=== PATIENT | male | born 1980 | race Caucasian/White ===

== ENCOUNTER 2020-03-09 07:31 | Emergency (ER) | payer MEDICAID ==
--- NOTE | 2020-03-09 08:03 | EDM.PDOC ---
ED HPI GENERAL MEDICAL PROBLEM - General Chief Complaint: Behavioral/Psych Stated Complaint: SHAKING Time Seen by Provider: 03/09/20 07:58 Source of Information: Reports: Patient History Limitations: Reports: No Limitations - History of Present Illness INITIAL COMMENTS - FREE TEXT/NARRATIVE: 39-year-old male who reports he woke at 2 AM feeling restless and had to get up and pace and began to feel very shaky and the symptoms got worse over time. Beginning approximately 5-6 AM he had nausea with vomiting 2. He also checked his blood pressure and noted that it was elevated. He was just recently admitted at the behavioral health unit at [facility] secondary to suicide attempt with suicidal ideation and alcohol/substance abuse and he was discharged on Thursday of last week. He reports that approximately one hour after getting home he began drinking alcohol again and he has been drinking heavily since that time. He does report that his last drink was 5-6 PM last night. He has used methamphetamine and marijuana in the past but he denies any methamphetamine abuse for the past 2-3 weeks. He currently denies any suicidal ideation and reports he has had no suicidal ideation since he has been discharged. He denies doing anything to harm himself. He does report that he has taken his blood pressure intermittently since he has been home from the hospital and it has been elevated and has been taking his amlodipine 10 mg " when he feels he needs them". He reports that he has taken 2 or 3 at a time and sometimes he has taken it more than 1 time a day. He has a chronic cough and chronic nasal congestion which has not changed. Eyes any fever. He does report headache, leg aches and some stomach ache that he rates as a 5/10. He reports that he has been drinking water but he has not been eating much over the past few days. He denies any auditory or visual hallucinations. He does have a history of alcohol withdrawal and he has had 3-4 alcohol withdrawal seizures in the past. He presents via ambulance. He came from his mother's home as he is currently staying with her now. There are no other associated signs or symptoms. There are no other modifying factors. Onset: Today (2 AM) Duration: Getting Worse Location: Reports: Head, Abdomen, Lower Extremity, Left, Lower Extremity, Right Quality: Reports: Ache Severity: Moderate Improves with: Reports: None Worsens with: Reports: None Context: Reports: Other (As above) Associated Symptoms: Reports: Headaches, Loss of Appetite, Nausea/Vomiting, Other (Shaky and other symptoms as above) Treatments [employer]: Reports: Other (see below) (Nothing) Bilateral legs Pain Score (Numeric/FACES): 5 - Related Data Allergies Allergy/AdvReac Type Severity Reaction Status Date / Time mirtazapine [From Remeron] Allergy Rash Verified 03/09/20 07:36 Home Meds: Home Meds Multivitamin [Multivitamins] 1 each PO DAILY 09/03/18 [History] amLODIPine Besylate [Norvasc] 5 mg PO DAILY 03/09/20 [History] Past Medical History Cardiovascular History: Reports: High Cholesterol, Hypertension Gastrointestinal History: Reports: GERD, Other (See Below) Other Gastrointestinal History: elevated liver function due to ETOH abuse Genitourinary History: Reports: Renal Disease Neurological History: Reports: Concussion, Seizure Other Neuro History: seizure from ETOH withdrawl Psychiatric History: Reports: Addiction, Anxiety, Depression, Panic Attack, Psych Hospitalization(s), Suicide Attempt, Suicidal Ideation, Other (See Below) Other Psychiatric History: mood disorder Endocrine/Metabolic History: Reports: Obesity/BMI 30+ Dermatologic History: Reports: Eczema Other Dermatologic History: exzema - Infectious Disease History Infectious Disease History: Reports: Chicken Pox - Past Surgical History GI Surgical History: Reports: Hernia, Inguinal (Bilateral inguinal hernia repair as an .) Social & Family History - Tobacco Use Tobacco Use Within Last Twelve Months: Smokeless Tobacco Years of Tobacco use: 18 - Caffeine Use Caffeine Use: Reports: Soda - Alcohol Use Days Per Week of Alcohol Use: 7 Number of Drinks Per Day: 4 Total Drinks Per Week: 28 Alcohol Use Frequency: Binges (Heavy alcohol use) - Recreational Drug Use Recreational Drug Use: Yes Recreational Drug Type: Reports: Marijuana/Hashish, Methamphetamine Recreational Drug Use Frequency: Weekly - Living Situation & Occupation Occupation: Unemployed Social History Comment: Currently staying with his mother in this area. He lives in [place]. ED ROS GENERAL - Review of Systems Review Of Systems: See Below Constitutional: Reports: Malaise HEENT: Reports: Other (Dry mouth) Respiratory: Reports: No Symptoms Cardiovascular: Reports: No Symptoms Endocrine: Reports: No Symptoms GI/Abdominal: Reports: Abdominal Pain, Nausea : Reports: No Symptoms Musculoskeletal: Reports: Leg Pain (Bilateral leg aching) Skin: Reports: No Symptoms Neurological: Reports: Headache, Tremors, Other (Feels very shaky) Psychiatric: Reports: Anxiety. Denies: Homicidal Ideation, Suicidal Ideation Hematologic/Lymphatic: Reports: No Symptoms Immunologic: Reports: No Symptoms ED EXAM, GENERAL - Physical Exam Exam: See Below Exam Limited By: No Limitations General Appearance: Alert, WD/WN, Anxious, Moderate Distress, Other (Very tremulous.) Eye Exam: Bilateral Eye: EOMI, Normal Inspection (Sclera are anicteric), PERRL Ears: Normal External Exam, Hearing Grossly Normal Ear Exam: Bilateral Ear: Auricle Normal Nose: Normal Inspection, Normal Mucosa, No Blood Throat/Mouth: Normal Voice, No Airway Compromise, Other (Somewhat dry mucous membranes) Head: Atraumatic, Normocephalic Neck: Normal Inspection, Supple, Non-Tender, Full Range of Motion Respiratory/Chest: No Respiratory Distress, Lungs Clear, Normal Breath Sounds, No Accessory Muscle Use, Chest Non-Tender Cardiovascular: Normal Peripheral Pulses, No JVD, No Murmur, Tachycardia Peripheral Pulses: 2+: Radial (L), Radial (R), Dorsalis Pedis (L), Dorsalis Pedis (R) GI/Abdominal: Normal Bowel Sounds, Soft, Non-Tender Back Exam: Normal Inspection, Full Range of Motion Extremities: Normal Inspection, Normal Range of Motion, Non-Tender, No Pedal Edema, Normal Capillary Refill Neurological: Alert, Oriented, CN II-XII Intact, Normal Cognition, No Motor/ Sensory Deficits Psychiatric: Anxious Skin Exam: Warm, Dry, Intact, Normal Color, No Rash EKG INTERPRETATION EKG Date: 03/09/20 Time: 08:11 Rhythm: Other (Sinus tachycardia) Rate (Beats/Min): 117 [place]: Normal P-Wave: Enlarged QRS: Other (LDH) ST-T: Normal QT: Prolonged (Slightly prolonged QTc.) Comparison: NA - No Prior EKG Course - Vital Signs Last Recorded V/S: Last Vital Signs Temp 36.5 C 03/09/20 10:00 Pulse 94 03/09/20 11:30 Resp 16 03/09/20 11:30 BP 126/84 03/09/20 11:30 Pulse Ox 97 03/09/20 11:30 - Orders/Labs/Meds Orders: Active Orders 24 hr Category Date Time Status EKG Documentation Completion [RC] ASDIRECTED Care 03/09/20 08:20 Active Sodium Chloride 0.9% [Normal Saline] 1,000 ml Med 03/09/20 08:30 Active IV ASDIRECTED Sodium Chloride 0.9% [Saline Flush] Med 03/09/20 08:18 Active 10 ml FLUSH ASDIRECTED PRN Peripheral IV Insertion Adult [OM.PC] Routine Oth 03/09/20 08:18 Ordered EKG 12 Lead [EK] Routine Ther 03/09/20 08:18 Ordered Medication Orders Sodium Chloride (Normal Saline) 1,000 mls @ 125 mls/hr IV ASDIRECTED EULA Last Admin: 03/09/20 08:58 Dose: 125 mls/hr Sodium Chloride (Saline Flush) 10 ml FLUSH ASDIRECTED PRN PRN Reason: Keep Vein Open Last Admin: 03/09/20 08:26 Dose: 10 ml Labs: Laboratory Tests 03/09/20 03/09/20 03/09/20 Range/Units 07:45 07:45 07:45 WBC 9.8 (4.5-12.0) X10-3/uL RBC 4.62 (4.30-5.75) x10(6)uL Hgb 14.3 (13.5-17.8) g/dL Hct 42.3 (30.0-51.3) % MCV 91.7 (80-96) fL MCH 30.9 (27.7-33.6) pg MCHC 33.7 (32.2-35.4) g/dL RDW 15.0 (11.5-15.5) % Plt Count 164 (125-369) X10(3)uL MPV 9.6 (7.4-10.4) fL Neut % (Auto) 75.7 (46-82) % Lymph % (Auto) 16.6 (13-37) % [place] % (Auto) 6.5 (4-12) % Eos % (Auto) 1 (1.0-5.0) % Baso % (Auto) 1 (0-2) % Neut # (Auto) 7.4 (1.6-8.3) # Lymph # (Auto) 1.6 (0.6-5.0) # [place] # (Auto) 0.6 (0.0-1.3) # Eos # (Auto) 0.1 (0.0-0.8) # Baso # (Auto) 0.1 (0.0-0.2) # Sodium 137 (135-145) mmol/L Potassium 3.6 (3.5-5.3) mmol/L Chloride 97 L D (100-110) mmol/L Carbon Dioxide 20 L (21-32) mmol/L BUN 14 (7-18) mg/dL Creatinine 1.2 (0.70-1.30) mg/dL Est Cr Clr Drug Dosing 80.75 mL/min Estimated GFR (MDRD) > 60 (>60) BUN/Creatinine Ratio 11.7 (9-20) Glucose 121 H (80-116) mg/dL Calcium 10.4 H (8.6-10.2) mg/dL Magnesium 1.6 L (1.8-2.5) mg/dL Total Bilirubin 0.8 (0.1-1.3) mg/dL AST 317 H* D (5-25) IU/L ALT 440 H* D (12-36) U/L Alkaline Phosphatase 98 (56-112) IU/L Total Protein 9.6 H (6.0-8.0) g/dL Albumin 5.2 (3.5-5.2) g/dL Globulin 4.4 g/dL Albumin/Globulin Ratio 1.2 Urine Color (YELLOW) Urine Appearance (CLEAR) Urine pH (5.0-6.5) Ur Specific [place] (1.010-1.025) Urine Protein (NEGATIVE) mg/dL Urine Glucose (UA) (NORMAL) mg/dL Urine Ketones (NEGATIVE) mg/dL Urine Occult Blood (NEGATIVE) Urine Nitrite (NEGATIVE) Urine Bilirubin (NEGATIVE) Urine Urobilinogen (NEGATIVE) mg/dL Ur Leukocyte Esterase (NEGATIVE) Urine RBC (0-5) Urine WBC (0-5) Ur Squamous Epith Cells (NS,R,O) Urine Bacteria (NS) Urine Opiates Screen (NEGATIVE) Ur Oxycodone Screen (NEGATIVE) Ur Propoxyphene Screen (NEGATIVE) Ur Barbituates Screen (NEGATIVE) Ur Tricyclics Screen (NEGATIVE) Ur Phencyclidine Scrn (NEGATIVE) Ur Amphetamine Screen (NEGATIVE) Urine MDMA Screen (NEGATIVE) U Benzodiazepines Scrn (NEGATIVE) U Cocaine Metab Screen (NEGATIVE) U Marijuana (THC) Screen (NEGATIVE) Ethyl Alcohol 0.06 H (<0.03) % 03/09/20 03/09/20 Range/Units 09:03 09:03 WBC (4.5-12.0) X10-3/uL RBC (4.30-5.75) x10(6)uL Hgb (13.5-17.8) g/dL Hct (30.0-51.3) % MCV (80-96) fL MCH (27.7-33.6) pg MCHC (32.2-35.4) g/dL RDW (11.5-15.5) % Plt Count (125-369) X10(3)uL MPV (7.4-10.4) fL Neut % (Auto) (46-82) % Lymph % (Auto) (13-37) % [place] % (Auto) (4-12) % Eos % (Auto) (1.0-5.0) % Baso % (Auto) (0-2) % Neut # (Auto) (1.6-8.3) # Lymph # (Auto) (0.6-5.0) # [place] # (Auto) (0.0-1.3) # Eos # (Auto) (0.0-0.8) # Baso # (Auto) (0.0-0.2) # Sodium (135-145) mmol/L Potassium (3.5-5.3) mmol/L Chloride (100-110) mmol/L Carbon Dioxide (21-32) mmol/L BUN (7-18) mg/dL Creatinine (0.70-1.30) mg/dL Est Cr Clr Drug Dosing mL/min Estimated GFR (MDRD) (>60) BUN/Creatinine Ratio (9-20) Glucose (80-116) mg/dL Calcium (8.6-10.2) mg/dL Magnesium (1.8-2.5) mg/dL Total Bilirubin (0.1-1.3) mg/dL AST (5-25) IU/L ALT (12-36) U/L Alkaline Phosphatase (56-112) IU/L Total Protein (6.0-8.0) g/dL Albumin (3.5-5.2) g/dL Globulin g/dL Albumin/Globulin Ratio Urine Color Yellow (YELLOW) Urine Appearance Clear (CLEAR) Urine pH 5.0 (5.0-6.5) Ur Specific [place] 1.010 (1.010-1.025) Urine Protein Trace (NEGATIVE) mg/dL Urine Glucose (UA) Normal (NORMAL) mg/dL Urine Ketones 15 H (NEGATIVE) mg/dL Urine Occult Blood Negative (NEGATIVE) Urine Nitrite Negative (NEGATIVE) Urine Bilirubin Negative (NEGATIVE) Urine Urobilinogen Normal (NEGATIVE) mg/dL Ur Leukocyte Esterase Negative (NEGATIVE) Urine RBC Not seen (0-5) Urine WBC 0-5 (0-5) Ur Squamous Epith Cells Rare (NS,R,O) Urine Bacteria Rare H (NS) Urine Opiates Screen Negative (NEGATIVE) Ur Oxycodone Screen Negative (NEGATIVE) Ur Propoxyphene Screen Negative (NEGATIVE) Ur Barbituates Screen Positive H (NEGATIVE) Ur Tricyclics Screen Negative (NEGATIVE) Ur Phencyclidine Scrn Negative (NEGATIVE) Ur Amphetamine Screen Negative (NEGATIVE) Urine MDMA Screen Negative (NEGATIVE) U Benzodiazepines Scrn Negative (NEGATIVE) U Cocaine Metab Screen Negative (NEGATIVE) U Marijuana (THC) Screen Negative (NEGATIVE) Ethyl Alcohol (<0.03) % Meds: Medications Generic Name Dose Route Start Last Admin Trade Name Freq PRN Reason Stop Dose Admin Sodium Chloride 1,000 mls @ 125 mls/hr 03/09/20 08:30 03/09/20 08:58 Normal Saline IV 125 mls/hr ASDIRECTED EULA Administration Sodium Chloride 10 ml 03/09/20 08:18 03/09/20 08:26 Saline Flush FLUSH 10 ml ASDIRECTED PRN Administration Keep Vein Open Discontinued Medications Generic Name Dose Route Start Last Admin Trade Name Freq PRN Reason Stop Dose Admin Folic Acid 1 mg 03/09/20 08:45 03/09/20 08:54 Folic Acid PO 03/09/20 08:46 1 mg ONETIME ONE Administration Sodium Chloride 500 mls @ 999 mls/hr 03/09/20 08:20 03/09/20 08:26 Normal Saline IV 03/09/20 08:50 999 mls/hr .BOLUS ONE Administration Magnesium Sulfate 2 gm/ Premix 50 mls @ 150 mls/hr 03/09/20 08:49 03/09/20 09 :00 IV 03/09/20 09:08 150 mls/hr ONETIME ONE Administration Sodium Chloride 500 mls @ 999 mls/hr 03/09/20 09:17 03/09/20 09:28 Normal Saline IV 03/09/20 09:47 999 mls/hr .BOLUS ONE Administration Lorazepam 1 mg 03/09/20 08:20 03/09/20 08:38 Ativan IVPUSH 03/09/20 08:21 1 mg ONETIME ONE Administration Lorazepam 1 mg 03/09/20 09:16 03/09/20 09:28 Ativan IVPUSH 03/09/20 09:17 1 mg ONETIME ONE Administration Multivitamins/Minerals/Vitamin C 1 tab 03/09/20 08:48 03/09/20 08:54 Tab-A-Joseph PO 03/09/20 08:49 1 tab ONETIME ONE Administration Ondansetron HCl 4 mg 03/09/20 08:29 03/09/20 08:40 Zofran IVPUSH 03/09/20 08:30 4 mg ONETIME ONE Administration Thiamine HCl 100 mg 03/09/20 08:43 03/09/20 08:54 Vitamin B-1 IVPUSH 03/09/20 08:44 100 mg ONETIME ONE Administration - Re-Assessments/Exams Free Text/Narrative Re-Assessment/Exam: 03/09/20 09:10: Patient is awake and alert. He is still quite shaky and tremulous. His pulse rate is still in the 110-120 range. His blood pressure is 160s over 90s. No visual or auditory hallucinations. No further vomiting. He was given IV but I gave him a multivitamin and folate orally and he tolerated this well. His blood tests show evidence of alcoholic liver disease with some mild hypomagnesemia. He has still not produced a urine. I will give the patient another milligram of Ativan IV and another 500 mL bolus of normal saline. The patient is in alcohol withdrawal and will need admission for IV fluids and close monitoring with treatment of his alcohol withdrawal. I discussed this with the patient and he would be agreeable to admission. I will discuss the patient's case with Dr. Hansen, hospitalist, in regard to admission. 03/09/20 09:25: I discussed patient's case with Dr. Hansen and he would be agreeable to admitting the patient. However, the charge nurse is having to check nurse staffing as there may not be staffing available to care for the patient at this facility. I am awaiting the answer in regard to this from the nursing staff. 03/09/20 09:33: There is not suitable nurse staffing for patient to be admitted to this facility. Therefore, I will need to transfer the patient. We have informed the patient and he would be in agreement to transfer. He would want me to discuss his case with the doctors at [facility]. 03/09/20 09:40: Call made to [place] in [place] [facility] and they will have to call me back after they are able to connect with the hospitalist. 03/09/20 09:50: I discussed patient's case with Dr. Kwong, hospitalist at [facility], and she will accept the patient in transfer. The patient will be transferred to [facility] via ambulance for direct admission. The patient is in agreement with the plan for transfer. Departure - Departure Time of Disposition: 12:24 Disposition: DC/Tfer to Acute Hospital 02 Condition: Fair (Stable) Clinical Impression: Acute hyperactive alcohol withdrawal delirium, Alcohol abuse, Hypomagnesemia - Discharge Information Forms: ED Department Discharge Sepsis Event Note - Evaluation Sepsis Screening Result: No Definite Risk - Focused Exam Vital Signs: Vital Signs Temp Pulse Resp BP Pulse Ox 03/09/20 11:30 94 16 126/84 97 03/09/20 11:00 95 18 131/79 97 03/09/20 10:30 95 18 129/82 96 03/09/20 10:00 36.5 C 96 20 138/77 97 03/09/20 09:31 107 H 20 149/88 H 97 03/09/20 09:02 121 H 20 160/78 H 99 03/09/20 08:39 107 H 20 143/72 H 99 03/09/20 08:10 121 H 22 H 150/84 H 100 03/09/20 07:31 37.2 C 140 H 22 H 165/88 H 98 Date Exam was Performed: 03/09/20 Time Exam was Performed: 14:14 - My Orders Last 24 Hours: My Active Orders 03/09/20 08:18 Sodium Chloride 0.9% [Saline Flush] 10 ml FLUSH ASDIRECTED PRN Peripheral IV Insertion Adult [OM.PC] Routine EKG 12 Lead [EK] Routine 03/09/20 08:20 EKG Documentation Completion [RC] ASDIRECTED 03/09/20 08:30 Sodium Chloride 0.9% [Normal Saline] 1,000 ml IV ASDIRECTED - Assessment/Plan Last 24 Hours: My Active Orders 03/09/20 08:18 Sodium Chloride 0.9% [Saline Flush] 10 ml FLUSH ASDIRECTED PRN Peripheral IV Insertion Adult [OM.PC] Routine EKG 12 Lead [EK] Routine 03/09/20 08:20 EKG Documentation Completion [RC] ASDIRECTED 03/09/20 08:30 Sodium Chloride 0.9% [Normal Saline] 1,000 ml IV ASDIRECTED
[2020-03-09] MEDS ORDERED: Sodium Chloride 0.9% 10 ML Syringe FLUSH PRN (08:18)
[2020-03-09] MEDS ORDERED: Sodium Chloride 0.9% 500 ML IV ONE ×2 (08:20→09:17)
[2020-03-09] MEDS ORDERED: LORazepam 2 MG/ML SDV IVPUSH ONE ×2 (08:20→09:16)
[2020-03-09] MEDS ORDERED: Ondansetron 4 MG/2 ML SDV IVPUSH ONE (08:29)
[2020-03-09] MEDS ORDERED: Sodium Chloride 0.9% 1,000 ML IV SCH (08:30)
[2020-03-09] MEDS ORDERED: Thiamine 200 MG/2 ML MDV IVPUSH ONE (08:43)
[2020-03-09] MEDS ORDERED: Folic Acid 1 MG Tab PO ONE (08:45)
[2020-03-09] MEDS ORDERED: Multivitamin Tab PO ONE (08:48)
[2020-03-09] MEDS ORDERED: Magnesium Sulfate/Water 2 GM in Premix Bag 1 BAG IV ONE (08:49)
[2020-03-09 15:15] VITALS: BP 141/80; PULSE 90
== END 2020-03-09 12:24 ==
LOC: FB.ED 07:31
DX: F10.231 Alcohol dependence with withdrawal delirium (principal); E83.42 Hypomagnesemia; E66.9 Obesity, unspecified; I10 Essential (primary) hypertension; F17.290 Nicotine dependence, other tobacco product, uncomplicated; Z88.8 Allergy status to other drugs, medicaments and biological substances; Z68.30 Body mass index [BMI] 30.0-30.9, adult; Z79.899 Other long term (current) drug therapy
CPT/HCPCS: 36415; 80053; 80305; 80307; 81001; 83735; 85025; 93005; 96361; 96365; 96375; 96376; 99285; A9270; J2060; J2405; J3411; J3475; J7030; J7040